=== PATIENT | male | born 1950 | race African-American/Black ===

== ENCOUNTER 2019-12-18 | Emergency (ER) | payer MEDICARE, MEDICAID ==
[~2019-12-18] MED LIST: ACCUPRIL10 MG; ALBUTEROL S2.5 MG/.5; ALBUTEROL SUL0.083 % IN; ALBUTEROL0.083 % IN; ALBUTEROL0.5 % IN; ALBUTEROL2.5 MG/3 M IN; ALLOPURINOL100 MG PO; AMOXICILLIN500 MG OR; AMOXIL500 MG OR; ASPIRIN EC81 MG PO; ASPIRIN LOW DOS81 M2 PO; ASPIRIN LOW81 M1 PO; ASTHMA MEDS; AUGMENTIN875 MG OR; AUGMENTIN875TAB PO; CARPAL TUNNEL WRIST XX; CETIRIZ/PSE1 TAB PO; CIPROFLOXACN500 MG PO; CLARITIN10 M2 PO; COMBIVENT IN; COMBIVENT RESPIMAT IN; COUMADIN10 MG PO; CYCLOBENZAPR10 MG PO; DEPO-MEDROL40 MG/ML IJ; DILTIAZEM60 MG OR; DILTIAZEM60 MG PO; FISH OIL1000 MG PO; FLEXERIL OR; FLEXERIL PO; FLEXERIL10 MG PO; FLONASE NASAL50 MCG; FLOXIN OTIC OT; FUROSEMIDE20 MG PO; FUROSEMIDE40 MG PO; GABAPENTIN300 MG PO; KEFLEX500 M1 PO; KLOR-CON 1010 ME1 PO; LANOXIN0.25 MG PO; LASIX 40 MG TAB40 MG PO; LIPITOR40 M1 PO; LIPITOR40 MG PO; LISINOPRIL20 M1 PO; LISINOPRIL20 MG PO; LISINOPRIL40 MG PO; LORTAB 5 OR; LORTAB 7.5 OR; LORTAB 7.5 PO; LORTAB5 OR; MEDDOSEPAK OR; MEDDOSEPAK PO; MEDROL DOSEPAK4 MG PO; MEDROL4 M1 PO; MELOXICAM7.5 MG PO; METOPROL TAR50 MG PO; MOBIC7.5 MG PO; NAPROSYN500 MG OR; NAPROSYN500 MG PO; NAPROXEN DR500 MG OR; NAPROXEN DR500 MG PO; NAPROXEN500 MG PO; NASONEX50 MCG/AC; OMEPRAZOLE40 MG PO; OXYCOD/APAP1 TA4 PO; PERCOCET 10/31 COMBO PO; PERCOCET 5/325M1 TAB OR; PERCOCET 5/325M1 TAB PO; PERCOCET1 TA4 PO; POT CL MICRO10 MEQ PO; PRILOSEC40 MG PO; PROAIR HFA IN; PROVENTIL IN; PULMICORT0.25 MG/2 IN; TEMAZEPAM15 MG PO; TIZANIDINE HCL4 M1 PO; TORADOL PO; TRAZODONE50 MG PO; ULTRAM50 M1 OR; ULTRAM50 M1 PO; ULTRAM50 MG OR; ULTRAM50 MG PO; WARFARIN1 MG PO; WARFARIN6 MG PO; ZPAK PO; ZYRTEC10 MG PO
== END 2019-12-18 09:55 | disposition home or self-care (01) ==
DX: M87.851 Other osteonecrosis, right femur (principal); I10 Essential (primary) hypertension

== ENCOUNTER 2020-06-04 10:37 | Observation (INO) | payer MEDICARE, MEDICAID ==
[~2020-06-04] VITALS: Ht 167.6 cm; Wt 137.6 kg
--- NOTE | 2020-06-04 10:38 | NUR ---
WENT TO GET PATIENT FROM LOBBY FOR BEDSIDE TRIAGE PATIENT NOT IN LOBBY OR OUTSIDE NUMEROUS CALLS FOR PATIENT BOTH INSIDE AND OUTSIDE MADE. REGISTRATION UNSURE WHERE PATIENT WENT. NOTIFIED
--- NOTE | 2020-06-04 10:49 | NUR ---
PATEINT TO ROOM VIA WHEELCHAIR FOR BEDSIDE TRIAGE. INFORMED BY REGISTRATION THAT PATIENT HAD RETURNED TO ER. MD NOTIFIED OF PATIENT STATUS
[2020-06-04 11:22] LABS: HEMATOCRIT 40.9 % (39.0-50.0); HEMOGLOBIN 12.9 g/dl (14.0-18.0); IMMATURE GRANULOCYTES 0.2 % (0.0-5.0); MEAN CELL VOLUME 88.3 fL CALC (80.0-100.0); MEAN CORPUSCULAR HGB 27.9 pG CALC (26.0-32.0); MEAN CORPUSCULAR HGB CONC 31.5 g/dL CAL (32.0-36.0); NEUT# 3.9 thou/uL (1.82-7.42); RED BLOOD COUNT 4.63 mill/uL (4.70-6.10); RED CELL DISTRI WIDTH 14.6 % (11.5-15.5)
--- NOTE | 2020-06-04 11:30 | NUR ---
PATIENT RESTING IN STRETCHER IN NAD AND DENIES ANY NEEDS AT THIS TIME. LEFT SIDED CHEST PAIN 12/15. CALL [facility]MOND WITHIN REACH.
[2020-06-04 11:32] LABS: ALBUMIN 3.9 g/dL (3.2-5.0); ALKALINE PHOSPHATASE 107 u/l (38-126); ANION GAP 12 (6-22 (CALC)); BILIRUBIN, TOTAL 1.1 mg/dL (0.0-1.4); BUN 13 mg/dL (8-23); BUN/CREATININE RATIO 14 (12-20 (CALC)); CARBON DIOXIDE 30 mmol/l (22-30); CHLORIDE 101 mmol/l (95-108); CREATININE 0.9 mg/dL (0.7-1.3); GFR > 60 ML/MIN (>=60 (CALC)); GFR FOR AFR.AMER. > 60 ML/MIN (>=60 (CALC)); POTASSIUM 3.5 mmol/l (3.5-5.1); SGOT/AST 36 u/l (19-48); SODIUM 139 mmol/l (137-146); TOTAL PROTEIN 6.7 g/dL (6.3-8.2)
--- NOTE | 2020-06-04 12:30 | NUR ---
EMPTIED 1000 MLS OF PALE YELLOW URINE FROM URINAL. PT DENIES ANY CHEST PAIN AT THIS TIME. [facility]
--- NOTE | 2020-06-04 12:40 | NUR ---
MAZIN CALLED TO YANIV MERRITT.
[2020-06-04] MEDS ORDERED: CLOPIDOGREL75 MG PO (12:59)
[2020-06-04] MEDS ORDERED: ALLOPURINOL100 MG PO (13:00)
[2020-06-04] MEDS ORDERED: PERCOCET1 TA4 PO (13:07)
[2020-06-04] MEDS ORDERED: BREO ELLIPTA1 INH IN (13:11)
[2020-06-04] MEDS ORDERED: LIPITOR20 M1 PO (13:12)
[2020-06-04] MEDS ORDERED: DILTIAZEM60 MG PO (13:12)
[2020-06-04] MEDS ORDERED: LISINOPRIL20 MG PO (13:12)
[2020-06-04] MEDS ORDERED: LASIX40 MG PO (13:14)
[2020-06-04] MEDS ORDERED: ELIQUIS5 MG PO (13:14)
[2020-06-04] MEDS ORDERED: GABAPENTIN300 M2 PO (13:15)
[2020-06-04] MEDS ORDERED: TRAZODONE50 MG PO (13:15)
[2020-06-04] MEDS ORDERED: TAMSULOSIN HCL0.4 MG PO (13:15)
[2020-06-04] MEDS ORDERED: KLOR-CON M1010 MEQ PO (13:16)
--- NOTE | 2020-06-04 13:40 | NUR ---
IV ABX INFUSING PATIENT DENIES ANY NEEDS AT THIS TIME. PT AWARE OF PENDING TRANSFER TO PA. URINE OUTPUT 900.
--- NOTE | 2020-06-04 14:15 | NUR ---
Admission Note Report Given to: YANIV MERRITT Transported by: Wheelchair X Stretcher Transported with: X Nurse Transporter X Patent IV O2 X Supervisor [employer] Location: ICU X MS2 PT TAKEN TO MS ROOM 261 IN STABLE CONDITION.
--- NOTE | 2020-06-04 14:17 | NUR ---
PT ARRIVED TO UNIT VIA STRETCHER WITH ER STAFF; ALERT AND ORIENTED. AMBULATED TO BED WITH CANE; STEADY GAIT. DENIES ANY CHEST PAIN CURRENTLY; STATES HE HAS CHRONIC BILATERAL KNEE PAIN THAT HE TAKES PERCOCET FOR AT HOME. RESPIRATIONS EVEN AND UNLABORED ON ROOM AIR; LUNGS CLEAR. REPORTS EXERTIONAL SOB; USES CPAP AT HS AT HOME DUE TO SLEEP APNEA; STATES THAT HE WILL BE OK WITHOUT IT TONIGHT DURING HOSPITAL STAY. HR IS IRREGULAR; TELE ON SINUS ILIANA. SKIN TEARS X 2 TO RIGHT GROIN; PHOTOS TAKEN AND PLACED IN CHART; SKIN TEARS APPROXIMATED AND STERI STRIPS APPLIED. 2+ BLE EDEMA; DISCOLORATION TO ANKLES; SCROTAL EDEMA. IV SITE APPEARS HEALTHY AND FLUSHES. ORIENTED TO ROOM AND CALL LIGHT SYSTEM. PLAN OF CARE DISCUSSED. PT ENCOURAGED TO VERBALIZE CONCERNS. STATES UNDERSTANDING. SAFETY MEASURES IN PLACE. CALL LIGHT WITHIN REACH.
[2020-06-04 15:00] VITALS: BP 153/92
--- NOTE | 2020-06-04 15:00 | NUR ---
LASIX GIVEN IV. PT RESTING IN BED SEMI FOWLERS. REQUESTED SNACK AND SODA; PROVIDED. LIMITATION OF ORAL FLUID INTAKE EXPLAINED AND PT STATES UNDERSTANDING.
--- NOTE | 2020-06-04 18:37 | NUR ---
AFIB ON TELEMERY; HEART RATE FREQUENTLY DECREASING IN THE 40'S PER TELE MONITOR; PT IS ASMYPTOMATIC. WILL CONTINUE TO MONITOR.
[2020-06-04 19:00] VITALS: BP 133/93
--- NOTE | 2020-06-04 19:39 | NUR ---
ED CALLED TO REPORT PT'S HR IN AFIB HIGH 30'S. ASSESSED PT, DENIES CP, DOES C/O MILD SOB AND ASKED FOR BREATHING TREATMENT. NOTIFIED REPORTED RIG HAND PHYSICIAN. ORDERS RECEIVED TO TRANSFER PT TO ICU AND ORDERS RECEIVED.
[2020-06-04 20:00] VITALS: BP 136/93
--- NOTE | 2020-06-04 20:00 | NUR ---
RECEIVED INTO ICU 2 FROM M/S VIA BED. PLACED ON DEVELOPMENT SPEC SHOWING AFIB, SLOW VENTRICULAR RESPONSE, HR 40'S. RESP EVEN AND UNLABORED. RA O2 SAT 97% VSS. ORIENTED PATIENT TO SURROUNDINGS. CALL [facility] IN REACH. REPORT RECEIVED FROM RENAN/YANIV.
--- NOTE | 2020-06-04 20:10 | NUR ---
PT TRANSFERED TO ICU PER PHYSICIAN'S ORDERS. PT STABLE UPON TRANSFER. REPORT GIVEN TO ICU NURSE AT THIS TIME.
--- NOTE | 2020-06-04 20:15 | NUR ---
PATIENT RESTING IN BED WITHOUT COMPLAINTS. LUNGS CLEAR, DIMINISHED THROUGHOUT. ABD OBESE, SOFT WITH ACTIVE BOWEL SOUND. EDEMA OF BILATERAL LOWER EXTREMITIES, LLE 3+, RLE 2+ PITTING EDEMA. SALINE LOCK IN RAC FLUSHED AND PATENT. DISCUSSED WITH PATIENT PLAN OF CARE AND REASON FOR TRANSFER TO ICU. PATIENT VERBALIZES UNDERSTANDING. SHIFT ASSESSMENT COMPLETED.
--- NOTE | 2020-06-04 20:30 | NUR ---
LASIX 40 MG IVP GIVEN ORDERED. RAC SALINE LOCK FLUSHED AND PATENT K RIDER (20 MEQ/100 ML) STARTED AT THIS TIME TO RUN OVER 2 HOURS.
[2020-06-04 21:00] VITALS: BP 134/79
--- NOTE | 2020-06-04 22:00 | NUR ---
PATIENT DIURESING FROM LASIX GIVEN EARLIER. RESTING WITHOUT COMPLAINTS. VSS.
--- NOTE | 2020-06-04 22:40 | NUR ---
Christopher LEE INFUSED WITHOUT INCIDENT. SALINE LOCK IN RAC FLUSHED AND PATENT.
[2020-06-04 23:00] VITALS: BP 120/89
--- NOTE | 2020-06-04 23:55 | NUR ---
PATIENT AWAKE WATCHING TV. VSS. MONITOR AFIB WITH SLOW VENTRICULAR RESPONSE, HR 38-50'S.
[2020-06-05] VITALS (13 sets, daily range): BP systolic 122–185; BP diastolic 76–119
--- NOTE | 2020-06-05 02:00 | NUR ---
DOZES FOR SHORT INTERVALS. VSS. RESP NON-LABORED.
--- NOTE | 2020-06-05 04:00 | NUR ---
NO CHANGES TO REORT. REMAINS IN AFIB ON MONITOR WITH SLOW VENTRICULAR RESPONSE. VSS. OCC DRY COUGH NOTED.
--- NOTE | 2020-06-05 06:00 | NUR ---
PATIENT DOZED ON AND OFF DURING THE NIGHT. NO COMPLAINTS VOICED. VSS. REMAINS AFIB. SALINE LOCK INTACT IN RAC.
[2020-06-05 06:24] LABS: CHOLESTEROL HDL RATIO 2.8 (<4.4 (CALC)); MAGNESIUM 1.8 mg/dL (1.6-2.3)
--- NOTE | 2020-06-05 06:45 | NUR ---
REPORT RECEIVED FROM ISABEL PURVIS. CARE ASSUMED.
--- NOTE | 2020-06-05 07:00 | NUR ---
PT RESTING IN BED AWAKE. PT IS ALERT AND ORIENTED X3. SHIFT ASSESSMENT COMLETED AT THIS TIME. IV PATENT X1. CALL LIGHT IN REACH. WILL CONTINUE TO MONITOR.
--- NOTE | 2020-06-05 08:00 | NUR ---
PT ASSISTED UP TO COMMODE FOR BM THEN ASSISTED BACK TO RECLINER.
--- NOTE | 2020-06-05 10:00 | NUR ---
PT SITTING UP IN RECLINER AT BEDSIDE. VSS ON MONITOR. RESP ARE EVEN AND UNLABORED. NO DISTRESS NOTED. CALL LIGHT IN REACH. WILL CONTINUE TO MONITOR.
--- NOTE | 2020-06-05 11:00 | NUR ---
DR TROY AT BEDSIDE.
[2020-06-05] MEDS ORDERED: DILTIAZEM60 MG PO (11:24)
--- NOTE | 2020-06-05 12:00 | NUR ---
PT SITTING UP IN RECLINER EATING LUNCH. RESP ARE EVEN AND UNLABORED. NO DISTRESS NOTED. VSS ON MONITOR. CALL LIGHT IN REACH. WILL CONTINUE TO MONITOR.
--- NOTE | 2020-06-05 14:00 | NUR ---
PATIENT GIVEN DISCHARGE INSTRUCTIONS AND VERBALIZED UNDERSTANDING. [facility] CALLED FOR PATIENT TO RETURN HOME.
--- NOTE | 2020-06-05 14:10 | NUR ---
Discharge instructions given. Patient verbalizes understanding of same. Discharged in stable condition via [facility] with staff. All belongings sent with pt.
== END 2020-06-05 14:10 | disposition home or self-care (01) ==
LOC: ED 10:37 → ED-I 11:39 → ED 12:06 → MS2 12:25 → ICU 20:00
PROVIDERS: Family Medicine; Nurse Practitioner; ADMIT Internal Medicine; ATTEND Internal Medicine
DX: I11.0 Hypertensive heart disease with heart failure (principal); I50.9 Heart failure, unspecified; I25.10 Atherosclerotic heart disease of native coronary artery without angina pectoris; I48.91 Unspecified atrial fibrillation; I25.5 Ischemic cardiomyopathy; E78.5 Hyperlipidemia, unspecified; J44.9 Chronic obstructive pulmonary disease, unspecified; E66.01 Morbid (severe) obesity due to excess calories; G47.33 Obstructive sleep apnea (adult) (pediatric); Z20.828 Contact with and (suspected) exposure to other viral communicable diseases

== ENCOUNTER 2020-07-30 10:40 | Emergency (ER) | payer MEDICARE, MEDICAID ==
[~2020-07-30] VITALS: Ht 167.6 cm; Wt 102.0 kg
[~2020-07-30 10:40] MED LIST changes: +BREO ELLIPTA1 INH IN; +CLOPIDOGREL75 MG PO; +ELIQUIS5 MG PO; +GABAPENTIN300 M2 PO; +KLOR-CON M1010 MEQ PO; +LASIX40 MG PO; +LIPITOR20 M1 PO; +TAMSULOSIN HCL0.4 MG PO
[2020-07-30 11:33] VITALS: BP 139/84
== END 2020-07-30 11:33 | disposition home or self-care (01) ==
LOC: ED 10:40
DX: I10 Essential (primary) hypertension (principal)

== ENCOUNTER 2020-09-13 09:46 | Inpatient (IN) | payer MEDICARE, MEDICAID ==
[~2020-09-13] VITALS: Ht 167.6 cm; Wt 136.0 kg
--- NOTE | 2020-09-13 09:46 | NUR ---
PATIENT TO ROOM VIA WHEELCHAIR AND PHYSICIAN AT BEDSIDE FOR EVAL
--- NOTE | 2020-09-13 10:05 | NUR ---
RECIEVED FOR CARE. PATIENT BRADYCARDIC,DENIES CHEST PAIN OR SOB. RESP EASY, HR 48
[2020-09-13] MEDS ORDERED: ATORVASTATIN CA20 MG PO (10:09)
[2020-09-13] MEDS ORDERED: DICLOFENAC SODIUM1 % TOP (10:11)
[2020-09-13] MEDS ORDERED: RESTASIS0.05 % OU (10:12)
[2020-09-13] MEDS ORDERED: PROAIR HFA IN (10:14)
[2020-09-13] MEDS ORDERED: MUPIROCIN2 % TOP (10:14)
[2020-09-13] MEDS ORDERED: NEURONTIN300 MG PO (10:15)
[2020-09-13] MEDS ORDERED: DILTIAZEM HCL60 MG PO (10:16)
[2020-09-13] MEDS ORDERED: BAYER ASPIRIN E81 MG PO (10:18)
[2020-09-13] MEDS ORDERED: TYLENOL 8 HOUR650 MG PO (10:18)
[2020-09-13] MEDS ORDERED: DITROPAN5 MG/TA1 PO (10:18)
[2020-09-13 10:33] LABS: HEMATOCRIT 40.8 % (39.0-50.0); IMMATURE GRANULOCYTES 0.2 % (0.0-5.0); MEAN CELL VOLUME 86.8 fL CALC (80.0-100.0); MEAN CORPUSCULAR HGB 27.7 pG CALC (26.0-32.0); MEAN CORPUSCULAR HGB CONC 31.9 g/dL CAL (32.0-36.0); NEUT# 3.46 thou/uL (1.82-7.42); RED BLOOD COUNT 4.7 mill/uL (4.70-6.10); RED CELL DISTRI WIDTH 15.9 % (11.5-15.5)
[2020-09-13 10:45] LABS: ANION GAP 10 (6-22 (CALC)); BUN 18 mg/dL (8-23); BUN/CREATININE RATIO 19 (12-20 (CALC)); CARBON DIOXIDE 33 mmol/l (22-30); CHLORIDE 101 mmol/l (95-108); CREATININE 0.9 mg/dL (0.7-1.3); GFR > 60 ML/MIN (>=60 (CALC)); GFR FOR AFR.AMER. > 60 ML/MIN (>=60 (CALC)); POTASSIUM 4.4 mmol/l (3.5-5.1); SODIUM 139 mmol/l (137-146)
--- NOTE | 2020-09-13 11:58 | NUR ---
PATIENT NOTIFIED OF IMPENDING ADMISSION.
--- NOTE | 2020-09-13 13:12 | NUR ---
REPORT CALLED TO PARADISE PURVIS AT ICU IN SBAR FORMAT.
--- NOTE | 2020-09-13 13:21 | NUR ---
PT ADMITTED TO ICU BED 7 FROM ED VIA STRESTCHER FOR BRADYCARDIA, PT A&0X4, ABLE TO MAKE NEEDS KNOWN. PT AFIB, HR 48. RESPIRATIONS EVEN/UNLABORED, SA02@97% RA. LS CLEAR/DIMINISHED THROUGHOUT. ABDOMEN DISTENDED, NON-TENDER.BSX4 ACTIVE, LBM 12-7-20. PT SITTING IN CHAIR, OFFERS NO COMPLAINTS AT THIS TIME. PT ORIENTED TO ROOM, UNIT, AND CALL LIGHT. CALL LIGHT IN REACH. WILL MONITOR.
--- NOTE | 2020-09-13 13:25 | NUR ---
PATIENT TRANSFERRED TO ICU ROOM 7 VIA STRETCHER. cardiac monitoring during transfer. Stable upon arrival.
[2020-09-13 13:45] VITALS: BP 133/80
[2020-09-13 14:00] VITALS: BP 133/80
--- NOTE | 2020-09-13 15:30 | NUR ---
MARKOS LEMA AT BEDSIDE FOR ASSESSMENT AND TO DISCUSS PLAN OF CARE, MEDICAL RECORDS REQUESTED.
--- NOTE | 2020-09-13 15:39 | NUR ---
NOTIFIED DR. GLASS OFFICE, SPOKE WITH JASE. OFFICE FAXING PT RECORDS OVER.
[2020-09-13 17:00] VITALS: BP 128/67
--- NOTE | 2020-09-13 17:00 | NUR ---
NOTIFIED RADIOLOGY OF PENDING TRANSFER, CD TO COME.
--- NOTE | 2020-09-13 17:30 | NUR ---
MARKOS LEMA AT BEDSIDE FOR ASSESSMENT AND TO NOTIFY PT OF TRANSFER TO [facility] FOR PACEMAKER. PENDING ACCEPTANCE AT [facility].
--- NOTE | 2020-09-13 17:50 | NUR ---
PT ASSISTED TO BSC, BM.
--- NOTE | 2020-09-13 18:00 | NUR ---
LAB AT BEDSIDE FOR BLOOD DRAW
--- NOTE | 2020-09-13 18:31 | NUR ---
CALLED [facility], SPOKE WITH JANES RASHID SUP. PT ACCEPTED TO [address] LEGGETT[address]
--- NOTE | 2020-09-13 18:32 | NUR ---
[facility] CALLED, SPOKE WITH RUBEN WHITE 1 HR. PT UPDATED.
--- NOTE | 2020-09-13 18:40 | NUR ---
REPORT CALLED TO YANIV OLSEN [phone]
[2020-09-13 19:00] VITALS: BP 111/53
--- NOTE | 2020-09-13 20:00 | NUR ---
Discharge instructions given. Patient verbalizes understanding of same. Discharged in stable condition via Medical Transport to [place] with staff. All belongings sent with pt.
== END 2020-09-13 20:00 | DRG 310 ==
LOC: ED 09:46 → ED-I 11:15 → ED 11:47 → ICU 11:48
PROVIDERS: Family Medicine; ADMIT Internal Medicine; ATTEND Internal Medicine
DX: I49.5 Sick sinus syndrome (principal); I48.91 Unspecified atrial fibrillation; I25.10 Atherosclerotic heart disease of native coronary artery without angina pectoris; I10 Essential (primary) hypertension; E11.9 Type 2 diabetes mellitus without complications; J44.9 Chronic obstructive pulmonary disease, unspecified; E78.5 Hyperlipidemia, unspecified; G47.30 Sleep apnea, unspecified; E66.01 Morbid (severe) obesity due to excess calories; Z20.828 Contact with and (suspected) exposure to other viral communicable diseases; Z79.01 Long term (current) use of anticoagulants; Z79.02 Long term (current) use of antithrombotics/antiplatelets; Z79.891 Long term (current) use of opiate analgesic; Z79.82 Long term (current) use of aspirin; Z79.899 Other long term (current) drug therapy
CPT/HCPCS: A6454

== ENCOUNTER 2020-09-26 05:42 | Emergency (ER) | payer MEDICARE, MEDICAID ==
[~2020-09-26] VITALS: Ht 167.6 cm; Wt 132.0 kg
[~2020-09-26 05:42] MED LIST changes: +ATORVASTATIN CA20 MG PO; +BAYER ASPIRIN E81 MG PO; +DICLOFENAC SODIUM1 % TOP; +DILTIAZEM HCL60 MG PO; +DITROPAN5 MG/TA1 PO; +MUPIROCIN2 % TOP; +NEURONTIN300 MG PO; +RESTASIS0.05 % OU; +TYLENOL 8 HOUR650 MG PO
[2020-09-26 05:54] VITALS: BP 115/64
== END 2020-09-26 06:41 | disposition home or self-care (01) ==
LOC: ED 05:42
DX: L76.32 Postprocedural hematoma of skin and subcutaneous tissue following other procedure (principal); T81.31XA Disruption of external operation (surgical) wound, not elsewhere classified, initial encounter; I10 Essential (primary) hypertension; E78.5 Hyperlipidemia, unspecified; Y83.1 Surgical operation with implant of artificial internal device as the cause of abnormal reaction of the patient, or of later complication, without mention of misadventure at the time of the procedure; Z95.0 Presence of cardiac pacemaker

== ENCOUNTER 2020-11-28 00:07 | Emergency (ER) | payer MEDICARE, MEDICAID ==
[~2020-11-28] VITALS: Ht 167.6 cm; Wt 131.0 kg
[2020-11-28 07:00] VITALS: BP 138/70
== END 2020-11-28 07:00 | disposition home or self-care (01) ==
LOC: ED 00:07
DX: S20.212A Contusion of left front wall of thorax, initial encounter (principal); I10 Essential (primary) hypertension; E78.5 Hyperlipidemia, unspecified; J44.9 Chronic obstructive pulmonary disease, unspecified; Z95.0 Presence of cardiac pacemaker; W22.8XXA Striking against or struck by other objects, initial encounter

== ENCOUNTER 2021-04-21 05:26 | Emergency (ER) | payer MEDICARE, MEDICAID ==
[~2021-04-21] VITALS: Ht 167.6 cm; Wt 136.0 kg
[2021-04-21 05:54] LABS: HEMATOCRIT 43.4 % (39.0-50.0); HEMOGLOBIN 13.9 g/dl (14.0-18.0); IMMATURE GRANULOCYTES 0.2 % (0.0-5.0); MEAN CELL VOLUME 87.1 fL CALC (80.0-100.0); MEAN CORPUSCULAR HGB 27.9 pG CALC (26.0-32.0); NEUT# 2.87 thou/uL (1.82-7.42); RED BLOOD COUNT 4.98 mill/uL (4.70-6.10); RED CELL DISTRI WIDTH 14.3 % (11.5-15.5)
[2021-04-21 06:06] LABS: ALBUMIN 3.6 g/dL (3.2-5.0); ALKALINE PHOSPHATASE 94 u/l (38-126); ANION GAP 11 (6-22 (CALC)); BILIRUBIN, TOTAL 1.1 mg/dL (0.0-1.4); BUN 16 mg/dL (8-23); BUN/CREATININE RATIO 16 (12-20 (CALC)); CARBON DIOXIDE 30 mmol/l (22-30); CHLORIDE 100 mmol/l (95-108); GFR > 60 ML/MIN (>=60 (CALC)); GFR FOR AFR.AMER. > 60 ML/MIN (>=60 (CALC)); POTASSIUM 3.4 mmol/l (3.5-5.1); SGOT/AST 42 u/l (19-48); SODIUM 138 mmol/l (137-146); TOTAL PROTEIN 6.7 g/dL (6.3-8.2)
[2021-04-21 06:34] LABS: INTERNATIONAL NORMALIZED RATIO 1.2 RATIO (0.7-1.3); PROTHROMBIN TIME 12.8 SECONDS (9.0-12.5)
[2021-04-21] MEDS ORDERED: TORADOL PO (06:59)
[2021-04-21 07:27] VITALS: BP 139/70
== END 2021-04-21 07:40 | disposition home or self-care (01) ==
LOC: ED 05:26
PROVIDERS: Family Medicine
DX: G58.8 Other specified mononeuropathies (principal); I10 Essential (primary) hypertension; E78.5 Hyperlipidemia, unspecified; J44.9 Chronic obstructive pulmonary disease, unspecified; I48.91 Unspecified atrial fibrillation

== ENCOUNTER 2021-06-23 12:00 | Emergency (ER) | payer MEDICARE, MEDICAID ==
[~2021-06-23] VITALS: Ht 167.6 cm; Wt 130.0 kg
[2021-06-23 13:29] LABS: HEMATOCRIT 41.5 % (39.0-50.0); HEMOGLOBIN 13.5 g/dl (14.0-18.0); IMMATURE GRANULOCYTES 0.2 % (0.0-5.0); MEAN CELL VOLUME 89.6 fL CALC (80.0-100.0); MEAN CORPUSCULAR HGB 29.2 pG CALC (26.0-32.0); MEAN CORPUSCULAR HGB CONC 32.5 g/dL CAL (32.0-36.0); NEUT# 3.79 thou/uL (1.82-7.42); RED BLOOD COUNT 4.63 mill/uL (4.70-6.10); RED CELL DISTRI WIDTH 14.3 % (11.5-15.5)
[2021-06-23 13:39] LABS: URINE BILIRUBIN - DIPSTICK NEGATIVE (NEGATIVE); URINE BLOOD DIPSTICK NEGATIVE (NEGATIVE); URINE COLOR YELLOW; URINE GLUCOSE - DIPSTICK NEGATIVE (NEGATIVE); URINE KETONE NEGATIVE (NEGATIVE); URINE LEUK ESTERASE NEGATIVE (NEGATIVE); URINE PH 7.5 (4.5-8.0); URINE PROTEIN - DIPSTICK NEGATIVE (NEG-TRACE); URINE UROBILINOGEN - DIPSTICK 0.2 E.U./dL (0.2)
[2021-06-23 13:48] LABS: ALBUMIN 3.9 g/dL (3.2-5.0); ALKALINE PHOSPHATASE 65 u/l (38-126); ANION GAP 10 (6-22 (CALC)); BILIRUBIN, TOTAL 0.8 mg/dL (0.0-1.4); BUN 20 mg/dL (8-23); BUN/CREATININE RATIO 26 (12-20 (CALC)); CARBON DIOXIDE 32 mmol/l (22-30); CHLORIDE 100 mmol/l (95-108); CREATININE 0.8 mg/dL (0.7-1.3); GFR > 60 ML/MIN (>=60 (CALC)); GFR FOR AFR.AMER. > 60 ML/MIN (>=60 (CALC)); POTASSIUM 3.6 mmol/l (3.5-5.1); SGOT/AST 31 u/l (19-48); SODIUM 138 mmol/l (137-146)
[2021-06-23 13:53] LABS: URINE NITRITE - DIPSTICK NEGATIVE (Negative)
[2021-06-23 15:38] LABS: INTERNATIONAL NORMALIZED RATIO 1.1 RATIO (0.7-1.3); PROTHROMBIN TIME 11.9 SECONDS (9.0-12.5)
[2021-06-23] MEDS ORDERED: DILTIAZEM60 MG PO (18:06)
[2021-06-23] MEDS ORDERED: TAMSULOSIN0.4 MG PO (18:07)
[2021-06-23] MEDS ORDERED: PLAVIX75 MG PO (18:07)
[2021-06-23] MEDS ORDERED: ALLOPURINOL100 MG PO (18:08)
[2021-06-23] MEDS ORDERED: LIPITOR20 M1 PO (18:08)
[2021-06-23] MEDS ORDERED: FUROSEMIDE20 MG PO (18:09)
[2021-06-23] MEDS ORDERED: TRAZODONE50 MG PO (18:09)
[2021-06-23] MEDS ORDERED: ELIQUIS5 MG PO (18:09)
[2021-06-23] MEDS ORDERED: GABAPENTIN100 MG PO (18:10)
[2021-06-23] MEDS ORDERED: LISINOPRIL20 MG PO (18:10)
[2021-06-23 19:01] VITALS: BP 134/90
== END 2021-06-23 19:00 | disposition short-term general hospital (02) ==
LOC: ED 12:00
PROVIDERS: Family Medicine
DX: K92.1 Melena (principal); I10 Essential (primary) hypertension; I48.91 Unspecified atrial fibrillation; J44.9 Chronic obstructive pulmonary disease, unspecified; E78.5 Hyperlipidemia, unspecified; N40.0 Benign prostatic hyperplasia without lower urinary tract symptoms; Z95.0 Presence of cardiac pacemaker; Z79.02 Long term (current) use of antithrombotics/antiplatelets; Z79.01 Long term (current) use of anticoagulants
CPT/HCPCS: Q9967

== ENCOUNTER 2021-07-09 10:00 | Emergency (ER) | payer MEDICARE, MEDICAID ==
[~2021-07-09] VITALS: Ht 167.6 cm; Wt 131.8 kg
[~2021-07-09 10:00] MED LIST changes: +GABAPENTIN100 MG PO; +PLAVIX75 MG PO; +TAMSULOSIN0.4 MG PO
[2021-07-09] MEDS ORDERED: PROTONIX40 M2 PO (10:33)
[2021-07-09 11:03] LABS: IMMATURE GRANULOCYTES 0.1 % (0.0-5.0); MEAN CELL VOLUME 89.8 fL CALC (80.0-100.0); MEAN CORPUSCULAR HGB 29.2 pG CALC (26.0-32.0); MEAN CORPUSCULAR HGB CONC 32.5 g/dL CAL (32.0-36.0); NEUT# 5.15 thou/uL (1.82-7.42); RED BLOOD COUNT 3.84 mill/uL (4.70-6.10); RED CELL DISTRI WIDTH 14.8 % (11.5-15.5)
[2021-07-09 11:06] LABS: HEMATOCRIT 34.5 % (39.0-50.0); HEMOGLOBIN 11.2 g/dl (14.0-18.0)
[2021-07-09 11:19] LABS: ALBUMIN 4.2 g/dL (3.2-5.0); ALKALINE PHOSPHATASE 88 u/l (38-126); AMYLASE 87 u/l (30-110); ANION GAP 13 (6-22 (CALC)); BILIRUBIN, TOTAL 0.9 mg/dL (0.0-1.4); BUN 20 mg/dL (8-23); BUN/CREATININE RATIO 21 (12-20 (CALC)); CARBON DIOXIDE 27 mmol/l (22-30); CHLORIDE 105 mmol/l (95-108); GFR > 60 ML/MIN (>=60 (CALC)); GFR FOR AFR.AMER. > 60 ML/MIN (>=60 (CALC)); LIPASE 184 u/l (23-300); POTASSIUM 3.8 mmol/l (3.5-5.1); SGOT/AST 31 u/l (19-48); SODIUM 141 mmol/l (137-146); TOTAL PROTEIN 7.4 g/dL (6.3-8.2)
[2021-07-09 11:21] LABS: ACT PARTIAL THROMBO TIME 30.4 SECONDS (20.0-32.5); INTERNATIONAL NORMALIZED RATIO 1.2 RATIO (0.7-1.3); PROTHROMBIN TIME 12.1 SECONDS (9.0-12.5)
[2021-07-09 13:09] LABS: URINE BILIRUBIN - DIPSTICK NEGATIVE (NEGATIVE); URINE BLOOD DIPSTICK NEGATIVE (NEGATIVE); URINE COLOR YELLOW; URINE GLUCOSE - DIPSTICK NEGATIVE (NEGATIVE); URINE KETONE NEGATIVE (NEGATIVE); URINE LEUK ESTERASE NEGATIVE (NEGATIVE); URINE PROTEIN - DIPSTICK NEGATIVE (NEG-TRACE); URINE UROBILINOGEN - DIPSTICK 0.2 E.U./dL (0.2)
[2021-07-09 13:16] LABS: URINE NITRITE - DIPSTICK NEGATIVE (Negative)
[2021-07-09 13:50] VITALS: BP 128/76
== END 2021-07-09 13:50 | disposition home or self-care (01) ==
LOC: ED 10:00
DX: K92.2 Gastrointestinal hemorrhage, unspecified (principal); I10 Essential (primary) hypertension; J44.9 Chronic obstructive pulmonary disease, unspecified; E78.5 Hyperlipidemia, unspecified; I48.91 Unspecified atrial fibrillation; Z95.0 Presence of cardiac pacemaker; Z79.01 Long term (current) use of anticoagulants; Z79.02 Long term (current) use of antithrombotics/antiplatelets; Z20.822 Contact with and (suspected) exposure to COVID-19
CPT/HCPCS: Q9967

== ENCOUNTER 2021-09-25 06:37 | Emergency (ER) | payer MEDICARE, MEDICAID ==
[~2021-09-25] VITALS: Ht 167.6 cm; Wt 132.0 kg
[~2021-09-25 06:37] MED LIST changes: +PROTONIX40 M2 PO
[2021-09-25] MEDS ORDERED: ULTRAM50 MG PO (08:08)
[2021-09-25 08:24] VITALS: BP 130/80
== END 2021-09-25 09:11 | disposition home or self-care (01) ==
LOC: ED 06:37
DX: M25.551 Pain in right hip (principal); I10 Essential (primary) hypertension; E78.5 Hyperlipidemia, unspecified; J44.9 Chronic obstructive pulmonary disease, unspecified; I48.91 Unspecified atrial fibrillation; Z95.0 Presence of cardiac pacemaker; Z79.891 Long term (current) use of opiate analgesic

== ENCOUNTER 2021-11-25 15:24 | Emergency (ER) | payer MEDICARE, MEDICAID ==
[~2021-11-25] VITALS: Ht 167.6 cm; Wt 127.3 kg
[2021-11-25] MEDS ORDERED: NAPROXEN500 MG PO (19:08)
[2021-11-25] MEDS ORDERED: LORTAB 1010 MG PO (19:13)
[2021-11-25 19:23] VITALS: BP 132/74
== END 2021-11-25 19:32 | disposition home or self-care (01) ==
LOC: ED 15:24
DX: M16.11 Unilateral primary osteoarthritis, right hip (principal); I10 Essential (primary) hypertension; J44.9 Chronic obstructive pulmonary disease, unspecified; I48.91 Unspecified atrial fibrillation; E78.5 Hyperlipidemia, unspecified; Z95.0 Presence of cardiac pacemaker

== ENCOUNTER 2021-12-28 09:54 | Emergency (ER) | payer MEDICARE, MEDICAID ==
[~2021-12-28] VITALS: Ht 167.6 cm; Wt 120.0 kg
[2021-12-28] VITALS (32 sets, daily range): BP systolic 53–118; BP diastolic 33–75
[~2021-12-28 09:54] MED LIST changes: +LORTAB 1010 MG PO
[2021-12-28 11:02] LABS: IMMATURE GRANULOCYTES 0.1 % (0.0-5.0); MEAN CELL VOLUME 84.7 fL CALC (80.0-100.0); MEAN CORPUSCULAR HGB 25.3 pG CALC (26.0-32.0); MEAN CORPUSCULAR HGB CONC 29.9 g/dL CAL (32.0-36.0); PLATELET COUNT 160 thou/uL (130-400); RED BLOOD COUNT 6.13 mill/uL (4.70-6.10); RED CELL DISTRI WIDTH 23.3 % (11.5-15.5)
[2021-12-28 11:24] LABS: HEMATOCRIT 51.9 % (39.0-50.0); HEMOGLOBIN 15.5 g/dl (14.0-18.0)
[2021-12-28 11:25] LABS: BAND 0 % (0-8); MANUAL DIFFERENTIAL YES
[2021-12-28 11:31] LABS: ALBUMIN 4.2 g/dL (3.2-5.0); POTASSIUM 4.2 mmol/l (3.5-5.1); TOTAL PROTEIN 7.5 g/dL (6.3-8.2)
[2021-12-28 11:33] LABS: CREATININE 2.4 mg/dL (0.7-1.3)
== END 2021-12-28 12:17 | disposition expired ==
LOC: ED 09:54
PROVIDERS: Family Medicine
PROC: 0BH17EZ Insertion of Endotracheal Airway into Trachea, Via Natural or Artificial Opening (ICD-10-PCS; principal; 2021-12-28)
PROC: 5A1935Z Respiratory Ventilation, Less than 24 Consecutive Hours (ICD-10-PCS; 2021-12-28)
PROC: 06HY33Z Insertion of Infusion Device into Lower Vein, Percutaneous Approach (ICD-10-PCS; 2021-12-28)
PROC: 05HM33Z Insertion of Infusion Device into Right Internal Jugular Vein, Percutaneous Approach (ICD-10-PCS; 2021-12-28)
PROC: 5A12012 Performance of Cardiac Output, Single, Manual (ICD-10-PCS; 2021-12-28)
PROC: 30243N1 Transfusion of Nonautologous Red Blood Cells into Central Vein, Percutaneous Approach (ICD-10-PCS; 2021-12-28)
PROC: 30243N1 Transfusion of Nonautologous Red Blood Cells into Central Vein, Percutaneous Approach (ICD-10-PCS; 2021-12-28)
PROC: 30243N1 Transfusion of Nonautologous Red Blood Cells into Central Vein, Percutaneous Approach (ICD-10-PCS; 2021-12-28)
PROC: 30243N1 Transfusion of Nonautologous Red Blood Cells into Central Vein, Percutaneous Approach (ICD-10-PCS; 2021-12-28)
PROC: 30243N1 Transfusion of Nonautologous Red Blood Cells into Central Vein, Percutaneous Approach (ICD-10-PCS; 2021-12-28)
PROC: 30243N1 Transfusion of Nonautologous Red Blood Cells into Central Vein, Percutaneous Approach (ICD-10-PCS; 2021-12-28)
PROC: 30243N1 Transfusion of Nonautologous Red Blood Cells into Central Vein, Percutaneous Approach (ICD-10-PCS; 2021-12-28)
PROC: 30243N1 Transfusion of Nonautologous Red Blood Cells into Central Vein, Percutaneous Approach (ICD-10-PCS; 2021-12-28)
PROC: 0T9B70Z Drainage of Bladder with Drainage Device, Via Natural or Artificial Opening (ICD-10-PCS; 2021-12-28)
DX: K92.0 Hematemesis (principal); I46.9 Cardiac arrest, cause unspecified; I10 Essential (primary) hypertension; J44.9 Chronic obstructive pulmonary disease, unspecified; I48.91 Unspecified atrial fibrillation; E78.5 Hyperlipidemia, unspecified; Z95.0 Presence of cardiac pacemaker
CPT/HCPCS: J2354; P9016; S0164